=== PATIENT | male | born 1965 | race Caucasian/White ===

== ENCOUNTER 2018-07-04 15:07 | Day surgery (SDC) | payer BC ==
[~2018-07-04 15:07] MED LIST: MORPHINE SULFATE 4 MG/ML VIAL ONE
[2018-07-04] MEDS ORDERED: DIAZEPAM 5 MG TABLET PO ONE (15:26)
[2018-07-04] MEDS ORDERED: LIDOCAINE 1% W/EPI 1:200,000 MPF 30ML SQ ONE (16:41)
[2018-07-04] MEDS ORDERED: BUPIVACAINE 0.5% W/EPI MPF 30 ML VIAL SQ ONE (16:41)
--- NOTE | 2018-07-05 12:30 | Operative Note ---
DATE OF SURGERY: 07/04/2018 PREOPERATIVE DIAGNOSIS: Trigger finger right ring finger. POSTOPERATIVE DIAGNOSIS: Trigger finger right ring finger. OPERATION: Right ring finger trigger release. STAFF SURGEON: Tomi Medrano MD ANESTHESIA: Local. PREPARATION: Chloraprep. INDIVIDUAL CONSIDERATIONS: None. PROCEDURE: The patient was taken to the operating room and placed supine on the operating room table. His right arm was prepped and draped in the usual fashion. The patient had an incision directly over the A1 rick volarly and a 50/50 mixture of 1% lidocaine with epinephrine and 0.5% Marcaine with epinephrine was infiltrated in the skin. Limb was elevated and tourniquet was inflated to 250 mmHg. The patient had a longitudinal incision directly over the A1 rick. Sharp dissection carried down through the skin. Blunt dissection carried down into the rick. Retractors were placed on either side to protect the neurovascular bundle. The rick was nicked with the knife and then released under direct view proximally and distally. I then had him flex the finger. It would no longer trigger. After irrigation and hemostasis being obtained with compression and a Bovie, the skin was approximated with interrupted 4-0 nylon in a vertical mattress fashion. A sterile bulky compressive hand dressing was applied. The patient tolerated procedure well. Needle and sponge counts were correct. Estimated blood loss was minimal. He was taken back to recovery in good condition. There were no complications. [facility]
== END 2018-07-04 17:08 | disposition home or self-care (01) ==
LOC: SUR 15:07
PROVIDERS: ATTEND Orthopaedic Surgery
DX: M65.341 Trigger finger, right ring finger (principal)
CPT/HCPCS: J2270